=== PATIENT | male | born 1970 | race Caucasian/White ===

== ENCOUNTER 2021-10-23 18:51 | Inpatient (IN) | payer OTHER ==
[~2021-10-23] VITALS: Ht 177.8 cm; Wt 86.2 kg
[2021-10-23] MEDS ORDERED: NACL 0.9% 2,000 ML IV ONE (19:00)
[2021-10-23] MEDS ORDERED: ONDANSETRON 4 MG/2 ML VIAL IVP ONE ×2 (19:00→22:20)
[2021-10-23] MEDS ORDERED: KETOROLAC 30 MG/ML VIAL IVP ONE (19:00)
[2021-10-23 19:11] VITALS: BP 130/100
--- NOTE | 2021-10-23 19:12 | NUR ---
BIBA TO [facility] WITH [facility]
--- NOTE | 2021-10-23 19:30 | NUR ---
51 Y/O MALE BIBA FROM [facility] FOR TACHYCARDIA (160) AND VOMIT X2 DAYS. PATIENT PRESENTS TO ED WITH PAIN, FATIGUE, AND TACHYCARDIA. PT STATES HE HAS CHRONIC PAIN AND HE ALSO STATES HE FELL A COUPLE OF DAYS AGO. DENIES DIARRHEA; SKIN IS PINK/WARM/DRY; AAOX4 WITH WEAK, EVEN, AND STEADY GAIT; LUNGS CLEAR BL; PT DENIES ANY FEVER, SOB, OR COUGH AT THIS TIME; PATIENT STATES PAIN OF 7/10 AT THIS TIME; PATIENT POSITIONED FOR COMFORT; HOB ELEVATED; BEDRAILS UP X2; BED DOWN. ER MD MADE AWARE OF PT STATUS. HX OF PANCREATITIS. ETOH. PSYCH. PT IS HOMELESS. NK[facility] MEDS: ANTIDEPRESSANTS, CELEXA, PROPANOLOL, ABILIFY, ALPRAZOLAM
[2021-10-23 19:45] LABS: BASOPHILS # (AUTO) 0.2 K/uL (0.00-0.22); BASOPHILS % (AUTO) 1.8 % (0.0-2.0); EOSINOPHILS % (AUTO) 0.1 % (0.0-4.0); HEMATOCRIT 49.2 % (36-52); HEMOGLOBIN 17.1 g/dL (12.0-18.0); LYMPHOCYTES # (AUTO) 0.4 K/uL (2.0-11.5); LYMPHOCYTES % (AUTO) 4.3 % (20.5-51.1); MEAN CORPUSCULAR HEMOGLOBIN 32 pg (27-31); MEAN CORPUSCULAR HGB CONC 35 g/dL (33-37); MEAN CORPUSCULAR VOLUME 91.7 fL (80-94); MONOCYTES # (AUTO) 0.4 K/uL (0.8-1.0); MONOCYTES % (AUTO) 4.1 % (1.7-9.3); NEUTROPHILS # (AUTO) 8.7 K/uL (1.8-7.7); NEUTROPHILS % (AUTO) 89.7 % (42.2-75.2); PLATELET COUNT (AUTO) 196 K/uL (140-450); RED BLOOD CELL COUNT(AUTO) 5.37 MIL/uL (4.20-6.10); RED CELL DISTRIBUTION WIDTH 14.7 % (11.6-13.7); WHITE BLOOD COUNT (AUTO) 9.7 K/uL (4.8-10.8)
[2021-10-23 20:10] LABS: ALBUMIN 3.7 g/dL (3.4-5.0); ANION GAP 23.1 (8-16); CARBON DIOXIDE 26.1 mmol/L (21-32); POTASSIUM 4.2 mmol/L (3.5-5.1); TOTAL BILIRUBIN 0.5 mg/dL (0.0-1.0)
[2021-10-23] MEDS ORDERED: ONDANSETRON 4 MG/2 ML VIAL ONE (20:25)
[2021-10-23] MEDS ORDERED: KETOROLAC 30 MG/ML VIAL ONE (20:26)
--- NOTE | 2021-10-23 20:36 | NUR ---
PREET CHAPIN CALLED REQUESTING UPDATE
--- NOTE | 2021-10-23 20:38 | NUR ---
NUMBER PREET CHAPIN [phone] - [phone] AFTER [phone]
[2021-10-23] MEDS ORDERED: NACL 0.9% 1,000 ML IV ONE (22:20)
[2021-10-23 22:50] LABS: APPEARANCE,URINE CLEAR (CLEAR); BILIRUBIN,URINE NEGATIVE (NEGATIVE); BLOOD, URINE TRACE-I (NEGATIVE); COLOR,URINE DARK YELLOW (YELLOW); LEUKOCYTE ESTERASE ,URINE NEGATIVE (NEGATIVE); NITRITE, URINE NEGATIVE (NEGATIVE); UGLUCOSE NEGATIVE (NEGATIVE)
[2021-10-23] MEDS ORDERED: MORPHINE SULFATE 4 MG/ML SYR IVP ONE (22:55)
[2021-10-23] MEDS ORDERED: LORazepam 2 MG/ML VIAL IVP SCH (23:30)
[2021-10-24] MEDS ORDERED: ONDANSETRON 4 MG/2 ML VIAL ONE (01:26)
[2021-10-24] MEDS ORDERED: MORPHINE SULFATE 4 MG/ML SYR ONE (01:27)
[2021-10-24] MEDS: NACL 0.9% 1,000 ML IV SCH ×2 (05:20→09:30)
[2021-10-24] MEDS ORDERED: ACETAMINOPHEN 325 MG TAB PO PRN (06:25)
[2021-10-24] MEDS ORDERED: MAG SULF 2000 MG/WATER PREMIX 50 ML IV PRN (06:25)
[2021-10-24] MEDS ORDERED: MULTIVITAMIN-12 10 ML, THIAMINE 100 MG, FOLIC ACID 1 MG, MAGNESIUM SULFATE 50% 2,000 MG... IV SCH ×5 (06:25)
[2021-10-24] MEDS ORDERED: POTASSIUM CHLORIDE 10 MEQ TABER PO PRN (06:25)
[2021-10-24] MEDS ORDERED: DOCUSATE SODIUM 100 MG GELCAP PO PRN (06:25)
[2021-10-24] MEDS ORDERED: ZOLPIDEM 10 MG TAB PO PRN (06:25)
[2021-10-24] MEDS ORDERED: LORazepam 2 MG/ML VIAL IVP PRN (06:25)
[2021-10-24] MEDS ORDERED: ONDANSETRON 4 MG/2 ML VIAL IVP PRN (06:25)
--- NOTE | 2021-10-24 07:51 | NUR ---
PATIENT HAS BEEN SCREENED AND CATEGORIZED LOW NUTRITION RISK. PATIENT WILL BE SEEN WITHIN 7 DAYS OF ADMISSION. 10/30/[address]
[2021-10-24] MEDS ORDERED: METOPROLOL 25 MG TAB PO SCH (09:00)
[2021-10-24] MEDS: MORPHINE SULFATE 2 MG/ML SYR IVP PRN ×2 (09:02→14:16)
[2021-10-24] MEDS: chlordiazePOXIDE 25 MG CAP PO SCH ×3 (09:02→17:10)
--- NOTE | 2021-10-24 09:21 | NUR ---
PT CURRENTLY RESTING AT THIS TIME WITH EYES CLOSED. PT STATED PAIN RELIEF FROM MEDICATION PROVIDED
--- NOTE | 2021-10-24 09:42 | NUR ---
PT PROVIDED WITH BREAKFAST TRAY BEDSIDE
--- NOTE | 2021-10-24 10:11 | NUR ---
pt provided with gown, underwear, and bag for clothes
--- NOTE | 2021-10-24 10:34 | NUR ---
PT MOVED FROM CHAIR B TO BED 5
--- NOTE | 2021-10-24 14:20 | NUR ---
PT EATING LUNCH TRAY
--- NOTE | 2021-10-24 17:45 | NUR ---
PT AMBULATED TO RESTROOM STEADY GAIT
--- NOTE | 2021-10-24 17:45 | NUR ---
RECEIVED CALL FROM PREET KLINE PT'S SISTER [phone]. PER PT OKAY TO GIVE UPDATES. UPDATED ON PT STATUS ALL QUESTIONS AND CONCERNS ANSWERED AT THIS TIME
--- NOTE | 2021-10-24 18:39 | NUR ---
PT EATING DINNER TRAY
--- NOTE | 2021-10-24 18:44 | NUR ---
DENNIS SWAB COLLECTED AND HANDED TO ALBARO COHEN
[2021-10-24 18:45] VITALS: BP 145/77
[2021-10-24] MEDS ORDERED: LIB25 PO (19:10)
--- NOTE | 2021-10-24 19:19 | NUR ---
Pt report given to TREVOR ADLER. Transfer of care at this time.
--- NOTE | 2021-10-24 19:46 | NUR ---
d/c with VSS. d/c education given. opportunity to ask questions given and answered. rx of librium given. IV site removed, bleeding controlled with sterile gauze and reinforced with tape.
[2021-10-25] MEDS ORDERED: ONDA-188 SL (00:15)
[2021-10-25] MEDS ORDERED: FAMO-92 PO (00:15)
== END 2021-10-24 19:46 | disposition home or self-care (01) | DRG 282 ==
LOC: MED 18:51 → MMU 23:36
PROVIDERS: ADMIT General Practice; ATTEND General Practice
DX: K85.20 Alcohol induced acute pancreatitis without necrosis or infection (principal); F10.129 Alcohol abuse with intoxication, unspecified; R00.0 Tachycardia, unspecified
CPT/HCPCS: 36415; 80053; 81003; 83690; 85025; 96374; 96375; 96376; 99285; A9153; G0482; J1885; J2270; J2405; J3411; J3475; J3490

== ENCOUNTER 2021-10-24 20:54 | Emergency (ER) | payer OTHER ==
[~2021-10-24] VITALS: Ht 177.8 cm; Wt 88.5 kg
[~2021-10-24 20:54] MED LIST: LIB25 PO
[2021-10-24 21:30] VITALS: BP 138/90
--- NOTE | 2021-10-24 21:33 | NUR ---
TO LOBBY A/W BED AMBULATORY
--- NOTE | 2021-10-24 23:10 | NUR ---
SEEN AND EXAMINED BY DILEEP
[2021-10-24] MEDS ORDERED: MECLIZINE 25 MG TAB PO ONE (23:15)
[2021-10-24] MEDS ORDERED: chlordiazePOXIDE 25 MG CAP PO SCH (23:15)
[2021-10-24] MEDS ORDERED: ONDANSETRON 4 MG ODT PO ONE (23:15)
--- NOTE | 2021-10-24 23:15 | NUR ---
MEDICATED PER [facility] ORDER , TOLERATED WELL
[2021-10-25] MEDS ORDERED: ALUMINUM HYD/MAG/SIMETHICONE 30 ML, DICYCLOMINE HCL LIQUID 20 MG, LIDOCAINE VISCOUS 2% ... PO ONE ×3 (00:15)
[2021-10-25] MEDS ORDERED: ONDA-188 SL (00:15)
[2021-10-25] MEDS ORDERED: FAMO-92 PO (00:15)
[2021-10-25] MEDS ORDERED: DICYCLOMINE HCL LIQUID 10 MG/5 ML UDC ONE (00:25)
[2021-10-25] MEDS ORDERED: ALUMINUM HYD/MAG/SIMETHICONE 30 ML UDC ONE (00:25)
[2021-10-25 00:55] VITALS: BP 138/90
--- NOTE | 2021-10-25 00:55 | NUR ---
Patient discharged with v/s stable. Written and verbal after care instructions given and explained. Patient alert, oriented and verbalized understanding of instructions. Ambulatory with steady gait. All questions addressed prior to discharge. ID band removed. Patient advised to follow up with PMD. Rx of PEPCID, ZOFRAN, given. Patient educated on indication of medication including possible reaction and side effects. Opportunity to ask questions provided and answered.
== END 2021-10-25 00:55 | disposition home or self-care (01) ==
LOC: MED 20:54
DX: R42 Dizziness and giddiness (principal); R10.13 Epigastric pain; F17.200 Nicotine dependence, unspecified, uncomplicated; Z79.899 Other long term (current) drug therapy
CPT/HCPCS: 99284; J8597; Q0162